=== PATIENT | female | born 1990 | race Caucasian/White ===

== ENCOUNTER 2017-02-09 06:20 | Inpatient (IN) | payer MEDICAID ==
[~2017-02-09] VITALS: Ht 157.5 cm; Wt 79.0 kg
[2017-02-09 06:38] VITALS: Ht 157.5 cm; Wt 79.0 kg
[2017-02-09] MEDS ORDERED: LACTATED RINGER'S 1,000 ML IV PRN (06:39)
[2017-02-09] MEDS ORDERED: LACTATED RINGER'S 1,000 ML IV SCH (06:39)
[2017-02-09] MEDS ORDERED: METHYLERGONOVINE 0.2 MG INJ IM PRN (07:00)
[2017-02-09] MEDS ORDERED: MISOPROSTOL 200 MCG TAB PR PRN (07:00)
[2017-02-09] MEDS ORDERED: CARBOPROST 250 MCG INJ IM PRN (07:00)
[2017-02-09] MEDS ORDERED: BUTORPHANOL 2 MG INJ IV PRN ×2 (07:00)
[2017-02-09] MEDS ORDERED: LIDOCAINE 1% (MPF) 30 ML INJ INJ PRN ×2 (07:00)
[2017-02-09] MEDS ORDERED: AMPICILLIN 2 GM/NS (PMX) 100 ML IV ONE (07:00)
[2017-02-09] MEDS ORDERED: OXYTOCIN 30 UNITS/LR 500 ML IV PRN (07:00)
[2017-02-09] MEDS ORDERED: IBUPROFEN 600 MG TAB PO PRN (07:00)
[2017-02-09] MEDS ORDERED: OXYTOCIN 30 UNITS/LR 500 ML IV SCH ×3 (07:00→09:22)
[2017-02-09 07:26] LABS: BASOPHILS % 0.5 % (0.0-2.0); EOSINOPHILS # 0.1 10^3/ul (0.0-0.5); HEMATOCRIT 36.2 % (37.0-47.0); HEMOGLOBIN 12.4 g/dl (12.0-16.0); LYMPHOCYTES # 2.2 10^3/ul (0.8-2.9); LYMPHOCYTES % 25.7 % (15.0-51.0); MEAN CORPUSCULAR HEMOGLOBIN 29.3 pg (29.0-33.0); MEAN CORPUSCULAR HGB CONC 34.3 g/dl (32.0-37.0); MEAN CORPUSCULAR VOLUME 85.6 fl (82.0-101.0); MONOCYTE # 0.5 10^3/ul (0.3-0.9); MONOCYTES % 6.5 % (0.0-11.0); NEUTROPHIL # 5.5 10^3/ul (1.6-7.5); NEUTROPHILS % 65.9 % (39.0-77.0); PLATELET COUNT 181 10^3/UL (140-415); RED BLOOD COUNT 4.23 10^6/ul (4.20-5.40); RED CELL DISTRIBUTION WIDTH 12.5 % (11.5-14.5); WHITE BLOOD COUNT 8.4 10^3/ul (4.8-10.8)
[2017-02-09 07:44] LABS: INR 0.85; PROTIME 11.7 Sec (11.9-14.9); PT RATIO 0.9
[2017-02-09 07:45] LABS: PARTIAL THROMBOPLASTIN TIME 27.4 Sec (25.0-35.0)
--- NOTE | 2017-02-09 08:06 | LDN ---
Date/Time of Note Date/Time of Note DATE: 02/09/17 TIME: 08:03 Delivery Summary Normal spontaneous vaginal delivery of a baby girl from OA position shoulders delivered without any difficulty rest of the baby's body followed cord clamped after stopped pulsation. Placenta spontaneous expulsion. Inspected complete. Blood loss 250 cc peritoneal vaginal inspection no laceration. Weeks of Gestation 39 weeks 3 days Placenta Delivered: Spontaneously Meconium: none Episiotomy: No Laceration repair: 1 Anesthesia type: None Sponge & Needle done & correct: Yes All needle counts correct: Yes Any foreign bodies felt in the: No Problems: Infant Delivery Information Sex Sex: female Apgars 1 Minute: 9 5 Minute: 9 Suctioning Nose & mouth suctioned at yelena: Yes Delee suction performed: Yes Umbilical Cord Umbilical cord with: 3 Vessels Cord presentations: no nuchal cord Cord Blood was obtained: Yes WILI MCCARTNEY MD Feb 09, 2017 08:06
--- NOTE | 2017-02-09 08:11 | HP ---
Date/Time of Note Date/Time of Note DATE: 02/09/17 TIME: 08:06 OB - History Hx of Present Free Text/Dictation 25 years old female EDC February 13 admitted to [facility] in active labor. Pelvic examination on admission. Cervix 9 cm dilated vertex at -1 station with intact membrane. heart rate category 1 Chief Complaint: Labor pain Estimated Due Date: Feb 13, 2017 : 3 Para: 2 Care: Good Care Ultrasounds: Normal mid trimester US Obstetrical Complications: None Medical Complications: None Past Family/Social History * Past Medical, Surgical, Family and Obstetric Histories reviewed from chart. Rubella: immune RPR/VDRL: Negative GBS Status: Negative HBsAG: Negative OB Admission Exam Physical Exam HEENT: WNL Heart: Rhythm Normal Lungs: Clear, Equal Abdomen: WNL Extremities: Normal Reflexes: Normal Cervical Dilatation: 9cm Effacement: 100% Station: -1 Membranes: Intact Heart Rate: 130's Accelerations: Accelerations Present Decelerations: Early Decelerations Varibility: Moderate Contractions on Admission: < 5 Minutes Apart Intensity: Firm Last 72 hours Lab Results CBC & BMP 02/09/17 06:35 OB Assessment/Plan Reason for admission: other (Term in labor) Other plan: 26 years EDC February 13, 2017 admitted to the hospital in active labor pelvic exam on admission cervix 9 cm dilated vertex at -1-0 station intact membrane patient's sent from triage unit to L&D anticipating normal vaginal delivery WILI MCCARTNEY MD Feb 09, 2017 08:11
[2017-02-09] MEDS ORDERED: LANOLIN 7 GM TUBE TOP PRN (09:30)
[2017-02-09] MEDS ORDERED: WITCH HAZEL/GLYCERIN PAD PR PRN (09:30)
[2017-02-09] MEDS: SENNA/DOCUSATE NA (8.6MG/50MG) TAB PO SCH ×2 (09:30→21:35)
[2017-02-09] MEDS ORDERED: BENZOCAINE 20% 56 ML SPRAY TOP PRN (09:30)
[2017-02-09] MEDS ORDERED: ONDANSETRON 4 MG INJ IV PRN (09:30)
[2017-02-09] MEDS ORDERED: HYDROCODONE/APAP (5/325) TAB PO PRN ×2 (09:30)
[2017-02-09] MEDS ORDERED: DIBUCAINE 1% 30 GM OINT PR PRN (09:30)
[2017-02-09] MEDS ORDERED: OXYCODONE/ASPIRIN (4.88/325) TAB PO PRN ×2 (09:30)
[2017-02-09] MEDS ORDERED: ACETAMINOPHEN 325 MG TAB PO PRN (09:30)
[2017-02-09 09:45] VITALS: BP 104/57; PULSE 73; RESP 16
[2017-02-09 10:45] VITALS: BP 95/51; PULSE 84; RESP 16
[2017-02-09] MEDS ORDERED: AMPICILLIN 1 GM/NS (PMX) 50 ML IV SCH (11:00)
[2017-02-09] MEDS: IBUPROFEN 600 MG TAB PO SCH ×3 (12:00→23:35)
[2017-02-09 16:00] VITALS: BP 98/53; RESP 20
[2017-02-09 20:00] VITALS: BP 108/55; PULSE 81; RESP 17
[2017-02-10 04:00] VITALS: BP 90/50; PULSE 91; RESP 17
[2017-02-10] MEDS: IBUPROFEN 600 MG TAB PO SCH ×3 (06:00→17:34)
[2017-02-10 08:00] VITALS: BP 103/53; PULSE 86; RESP 18
[2017-02-10] MEDS: SENNA/DOCUSATE NA (8.6MG/50MG) TAB PO SCH ×2 (08:23→20:46)
[2017-02-10 09:00] LABS: BASOPHIL # 0.1 10^3/ul (0.0-0.1); BASOPHILS % 0.6 % (0.0-2.0); EOSINOPHILS # 0.1 10^3/ul (0.0-0.5); HEMATOCRIT 32.3 % (37.0-47.0); HEMOGLOBIN 11.1 g/dl (12.0-16.0); LYMPHOCYTES # 3.1 10^3/ul (0.8-2.9); LYMPHOCYTES % 26.6 % (15.0-51.0); MEAN CORPUSCULAR HEMOGLOBIN 29.5 pg (29.0-33.0); MEAN CORPUSCULAR HGB CONC 34.4 g/dl (32.0-37.0); MEAN CORPUSCULAR VOLUME 85.9 fl (82.0-101.0); MONOCYTE # 0.7 10^3/ul (0.3-0.9); NEUTROPHIL # 7.5 10^3/ul (1.6-7.5); NEUTROPHILS % 65.3 % (39.0-77.0); PLATELET COUNT 184 10^3/UL (140-415); RED BLOOD COUNT 3.76 10^6/ul (4.20-5.40); RED CELL DISTRIBUTION WIDTH 12.6 % (11.5-14.5); WHITE BLOOD COUNT 11.5 10^3/ul (4.8-10.8)
--- NOTE | 2017-02-10 09:53 | QN ---
Documentation Comment Post normal vaginal delivery day 1 Afebrile Vital signs are stable Abdomen soft. Uterus firm. Lochia moderate. Extremities normal. Ambulation encouraged. WILI MCCARTNEY MD Feb 10, 2017 09:53
[2017-02-10 16:00] VITALS: BP 103/54; RESP 16
[2017-02-10 20:00] VITALS: BP 105/58; PULSE 80; RESP 20
[2017-02-11] MEDS: IBUPROFEN 600 MG TAB PO SCH ×3 (00:21→12:50)
[2017-02-11 04:30] VITALS: BP 100/57; PULSE 76; RESP 18
[2017-02-11 08:00] VITALS: BP 99/55; PULSE 77; RESP 18
[2017-02-11] MEDS: SENNA/DOCUSATE NA (8.6MG/50MG) TAB PO SCH (08:32)
[2017-02-11] MEDS ORDERED: MEASLES,MUMPS,RUBELLA VACCINE INJ SC* ONE (09:00)
--- NOTE | 2017-02-11 12:04 | PD.PPDC ---
RADIOLOGIC TECHNOLOGIST MAMMOGRAM Discharge Instruction Condition Patient Condition: Good Diet Diet: Resume Regular Diet Activity/Restrictions Activity: Normal Activity May Shower Restrictions: No Exercising No Lifting No Driving No Sexual Activity Nothing in the Vagina No [place] No Tampons, douche Follow-up Follow-up with Physician: 2, Week/Weeks Provider Information: instructions given recommended to make appointment to be seen at the clinic in 2 weeks Return to clinic for DOG SITTER Instructions: Fever greater than 101 Chills Worsening abdominal pain Excessive Vaginal Bleeding More than 2 pads per hour Unable to tolerate diet OB Instructions: Breast Tenderness Depression Blurried Vision Headache WILI MCCARTNEY MD Feb 11, 2017 12:04
--- NOTE | 2017-02-11 12:07 | DS ---
Date/Time of Note Date/Time of Note DATE: 02/11/17 TIME: 12:05 Discharge Summary Admission/Discharge Info Admit Date/Time Feb 09, 2017 at 06:20 Discharge Date/Time February 11, 2017 at 12 noon Discharge Diagnosis Post normal vaginal delivery day 2 Patient Condition: Good Procedures Normal vaginal delivery Hx of Present Illness Term in labor admitted to the hospital for delivery Hospital Course Satisfactory recovery uneventful Follow-up Plan instruction given recommended to make appointment to be seen at the clinic in 2 weeks Primary Care Provider Care Physician No Primary Time spent on discharge: < 30 minutes WILI MCCARTNEY MD Feb 11, 2017 12:07
[2017-02-11] MEDS ORDERED: DIPHTH/TET/ACEL PERTUSS (ADULT) 0.5 ML VIAL IM* ONE (13:30)
== END 2017-02-11 15:50 | disposition home or self-care (01) | DRG 775 ==
LOC: L-D 06:20 → PP1 09:13
PROVIDERS: ADMIT Obstetrics & Gynecology; ATTEND Obstetrics & Gynecology
PROC: 10E0XZZ Delivery of Products of Conception, External Approach (ICD-10-PCS; principal; 2017-02-09)
PROC: 4A1HXCZ Monitoring of Products of Conception, Cardiac Rate, External Approach (ICD-10-PCS; 2017-02-09)
PROC: 3E0234Z Introduction of Serum, Toxoid and Vaccine into Muscle, Percutaneous Approach (ICD-10-PCS; 2017-02-11)
DX: O80 Encounter for full-term uncomplicated delivery (principal); Z37.0 Single live birth; Z3A.39 39 weeks gestation of pregnancy; Z23 Encounter for immunization
CPT/HCPCS: 85025; 85610; 85730; 86592; 86850; 86900; 86901; 87340; 90715; J0290; J2590; J7120